=== PATIENT | female | born 1950 ===

== ENCOUNTER 2017-06-11 07:30 | Emergency (ER) | payer MEDICARE, BC ==
[~2017-06-11] VITALS: Ht 152.4 cm; Wt 50.8 kg
[~2017-06-11 07:30] MED LIST: ALPR.5 PO; AMIT25 PO; ASCO500 PO; ASPI81CH PO; BENADRYL25 MG PO; FURO20 PO; Ferosul325 MG PO; GABA300T24; LISI20 PO; MAGOXI400; METCAR500 PO; METO50 PO; METO50ER PO; NITR.4SL SL; PANT40 PO; Prozac20 MG; Senna8.6 MG PO; VICODIN HP 10-1 EACH PO; WARF2 PO
[2017-06-11] MEDS ORDERED: METCAR500 (07:50)
[2017-06-11] MEDS ORDERED: ACET500 (07:50)
[2017-06-11] MEDS ORDERED: DIPH50 PO (07:51)
[2017-06-11] MEDS ORDERED: FLUO10 (07:51)
[2017-06-11] MEDS ORDERED: METO50 PO (07:51)
[2017-06-11] MEDS ORDERED: ONDA4ODT (07:52)
[2017-06-11] MEDS ORDERED: NIFE30ER PO (07:52)
[2017-06-11] MEDS ORDERED: GABA300 PO (07:52)
== END 2017-06-11 08:40 | disposition home or self-care (01) ==
LOC: ER 07:30
DX: I10 Essential (primary) hypertension (principal); M25.512 Pain in left shoulder; G89.29 Other chronic pain; I48.91 Unspecified atrial fibrillation; Z88.8 Allergy status to other drugs, medicaments and biological substances; Z91.011 Allergy to milk products; Z79.899 Other long term (current) drug therapy; Z79.82 Long term (current) use of aspirin; Z79.01 Long term (current) use of anticoagulants; Z95.2 Presence of prosthetic heart valve
CPT/HCPCS: 99282

== ENCOUNTER 2019-09-03 00:22 | Day surgery (SDC) | payer MEDICARE ==
[~2019-09-03 00:22] MED LIST changes: +ACET500; +DIPH50 PO; +FLUO10; +GABA300 PO; +METCAR500; +NIFE30ER PO; +ONDA4ODT
== END 2019-09-03 22:59 | disposition home or self-care (01) ==
LOC: WOUND 00:22
DX: L89.323 Pressure ulcer of left buttock, stage 3 (principal)
CPT/HCPCS: G0463

== ENCOUNTER 2019-09-24 00:23 | Day surgery (SDC) | payer MEDICARE | END 2019-09-24 22:47 | disposition home or self-care (01) | LOC: WOUND 00:23 | DX: L89.323 Pressure ulcer of left buttock, stage 3 (principal); I11.0 Hypertensive heart disease with heart failure; I50.9 Heart failure, unspecified; J43.9 Emphysema, unspecified; Z79.899 Other long term (current) drug therapy; Z79.82 Long term (current) use of aspirin; Z79.01 Long term (current) use of anticoagulants ==

== ENCOUNTER → 2019-09-30 | Outpatient (CLI) | payer MEDICARE ==
[2019-09-30 12:51] LABS: Prealbumin, Blood 13.3 mg/dL (20.0-40.0)
== END | disposition home or self-care (01) ==
LOC: LAB SHORT 12:00 → LAB 12:00
PROVIDERS: Internal Medicine Gastroenterology
DX: L89.323 Pressure ulcer of left buttock, stage 3 (principal)
CPT/HCPCS: 82040; 84134

== ENCOUNTER 2019-10-01 00:13 | Day surgery (SDC) | payer MEDICARE | END 2019-10-01 22:58 | disposition home or self-care (01) | LOC: WOUND 00:13 | DX: L89.323 Pressure ulcer of left buttock, stage 3 (principal); I11.0 Hypertensive heart disease with heart failure; I50.9 Heart failure, unspecified; J43.9 Emphysema, unspecified; Z79.899 Other long term (current) drug therapy; Z79.82 Long term (current) use of aspirin | CPT/HCPCS: 87070; 87075; 87077; 87186; 87205; G0463 ==

== ENCOUNTER 2019-10-08 00:24 | Day surgery (SDC) | payer MEDICARE | END 2019-10-08 23:04 | disposition home or self-care (01) | LOC: WOUND 00:24 | DX: L89.323 Pressure ulcer of left buttock, stage 3 (principal); I25.10 Atherosclerotic heart disease of native coronary artery without angina pectoris; I48.91 Unspecified atrial fibrillation; I11.0 Hypertensive heart disease with heart failure; I50.9 Heart failure, unspecified; J43.9 Emphysema, unspecified | CPT/HCPCS: G0463 ==

== ENCOUNTER 2019-10-22 00:08 | Day surgery (SDC) | payer MEDICARE | END 2019-10-22 23:04 | disposition home or self-care (01) | LOC: WOUND 00:08 | DX: L89.323 Pressure ulcer of left buttock, stage 3 (principal); I11.0 Hypertensive heart disease with heart failure; I50.9 Heart failure, unspecified; J43.9 Emphysema, unspecified; I25.10 Atherosclerotic heart disease of native coronary artery without angina pectoris; Z79.899 Other long term (current) drug therapy; Z79.82 Long term (current) use of aspirin; Z79.01 Long term (current) use of anticoagulants ==

== ENCOUNTER 2019-10-29 14:00 | Day surgery (SDC) | payer MEDICARE | END 2019-10-29 22:49 | disposition home or self-care (01) | LOC: WOUND 14:00 | DX: L89.323 Pressure ulcer of left buttock, stage 3 (principal); I25.10 Atherosclerotic heart disease of native coronary artery without angina pectoris; I48.91 Unspecified atrial fibrillation; I11.0 Hypertensive heart disease with heart failure; I50.9 Heart failure, unspecified | CPT/HCPCS: G0463 ==

== ENCOUNTER 2019-12-17 22:51 | Emergency (ER) | payer MEDICARE, OTHER ==
[~2019-12-17] VITALS: Ht 157.5 cm; Wt 45.4 kg
[2019-12-17 23:23] LABS: BASOPHILS ABSOLUTE AUTO 0.04 K/mm3 (0.00-0.23); BASOPHILS PERCENT AUTO 0 % (0-2); EOSINOPHILS ABSOLUTE AUTO 0.08 K/mm3 (0.00-0.68); EOSINOPHILS PERCENT AUTO 1 % (0-6); Hematocrit 35.2 % (33.0-51.0); IMMATURE GRAN ABSOLUTE AUTO 0.06 K/mm3 (0.00-0.10); IMMATURE GRAN PERCENT AUTO 1 % (0-1); LYMPHOCYTES ABSOLUTE AUTO 1.28 K/mm3 (0.84-5.20); LYMPHOCYTES PERCENT AUTO 11 % (21-46); MONOCYTES PERCENT AUTO 10 % (4-13); Mean Corpuscular HGB 26.1 pg (26.0-34.0); Mean Corpuscular HGB Conc 31.3 g/dL (31.5-36.5); Mean Corpuscular Volume 83 fL (80-100); Mean Platelet Volume 9.1 fL (9.1-12.4); NEUTROPHILS ABSOLUTE AUTO 8.81 K/mm3 (1.96-9.15); NEUTROPHILS PERCENT AUTO 77 % (41-73); Platelet Count 232 K/mm3 (150-400); RDW Coefficient Variation 17.5 % (11.7-14.2); RDW Standard Deviation 53.5 fL (35.1-46.3); Red Blood Cell Count 4.22 M/mm3 (3.80-5.20); White Blood Cell Count 11.37 K/mm3 (4.00-11.30)
[2019-12-17 23:41] LABS: Albumin, Blood 3.3 g/dL (3.4-5.0); Albumin/Globulin Ratio 0.9 (0.8-1.8); Bilirubin, Total 0.6 mg/dL (0.1-1.0); Bun/Creatinine Ratio 21.6 (12.0-20.0); Calcium, Blood 8.3 mg/dL (8.5-10.1); Creatinine, Blood 1.02 mg/dL (0.40-1.00); Globulin, Blood 3.6 g/dL (2.2-4.0); Potassium, Blood 3.6 mmol/L (3.5-5.5); Total Protein, Blood 6.9 g/dL (6.4-8.2)
[2019-12-18 00:40] LABS: Troponin I 0.033 ng/mL (0.000-0.040)
[2019-12-18] MEDS ORDERED: ELIQUIS2.5 MG (02:25)
[2019-12-18 02:36] LABS: Source, Urine Clean Catch
[2019-12-18 02:37] LABS: Appearance, Urine Clear (Clear); Blood, Urine Neg (Neg); Color, Urine Yellow (P-Yellow); Glucose Qualitative, Urine Neg (Neg); Ketones, Urine Neg (Neg); Leukocyte Esterase, Urine Neg (Neg); Nitrite, Urine Neg (Neg); Protein, Urine 2+ (Neg); Urobilinogen, Urine NORM (Normal)
[2019-12-18 02:54] LABS: Bilirubin, Urine 1+ (Neg)
[2019-12-18 02:56] LABS: Bacteria Few /hpf; Red Blood Cells, Urine Not Seen /hpf (0-2); Squamous Epithelial Cells Rare /hpf (Few); White Blood Cells, Urine Not Seen /hpf (0-5)
== END 2019-12-18 03:29 | disposition short-term general hospital (02) ==
LOC: ER 22:51
PROVIDERS: Emergency Medicine; Physician Assistant
DX: I48.91 Unspecified atrial fibrillation (principal); I71.01 Dissection of thoracic aorta; I71.02 Dissection of abdominal aorta; D64.9 Anemia, unspecified; Z88.8 Allergy status to other drugs, medicaments and biological substances; Z79.82 Long term (current) use of aspirin; Z79.899 Other long term (current) drug therapy; I10 Essential (primary) hypertension; J44.9 Chronic obstructive pulmonary disease, unspecified; I25.810 Atherosclerosis of coronary artery bypass graft(s) without angina pectoris; I25.2 Old myocardial infarction; Z20.828 Contact with and (suspected) exposure to other viral communicable diseases
CPT/HCPCS: 36415; 51702; 71275; 74175; 74177; 80053; 81001; 84484; 85025; 86850; 86900; 86901; 93005; 93010; 96361; 96374; 96375; 99284-25; C9132; J2270; J2405; J7030; Q9967; U0002

== ENCOUNTER 2020-01-03 13:35 | Emergency (ER) | payer MEDICARE ==
[~2020-01-03] VITALS: Ht 157.5 cm; Wt 47.6 kg
[~2020-01-03 13:35] MED LIST changes: -AMIT25 PO; -FLUO10; -GABA300 PO; -METCAR500; -VICODIN HP 10-1 EACH PO
[2020-01-03] MEDS ORDERED: METO50 PO (15:19)
[2020-01-03] MEDS ORDERED: MEMA5TAB PO (15:19)
[2020-01-03] MEDS ORDERED: HYDROCODONE-AC1 EAC7 PO (15:21)
[2020-01-03] MEDS ORDERED: Methocarbamol750 MG PO (15:22)
[2020-01-03] MEDS ORDERED: ELIQUIS5 MG PO (15:22)
[2020-01-03] MEDS ORDERED: FURO40 PO (15:23)
[2020-01-03] MEDS ORDERED: GABA300 PO (15:24)
[2020-01-03] MEDS ORDERED: K-Dur20 MEQ PO (15:24)
[2020-01-03] MEDS ORDERED: PANT40 PO (15:25)
[2020-01-03] MEDS ORDERED: AMIT25 PO (15:25)
[2020-01-03] MEDS ORDERED: Prozac40 MG PO (15:26)
[2020-01-03] MEDS ORDERED: FORTEO2.4 ML SC (15:28)
== END 2020-01-03 16:06 | disposition home or self-care (01) ==
LOC: ER 13:35
DX: S51.011A Laceration without foreign body of right elbow, initial encounter (principal); S00.03XA Contusion of scalp, initial encounter; I11.0 Hypertensive heart disease with heart failure; I50.22 Chronic systolic (congestive) heart failure; I48.91 Unspecified atrial fibrillation; Z79.01 Long term (current) use of anticoagulants; Z88.8 Allergy status to other drugs, medicaments and biological substances; Z91.011 Allergy to milk products; Z87.891 Personal history of nicotine dependence; W10.9XXA Fall (on) (from) unspecified stairs and steps, initial encounter
CPT/HCPCS: 70450; 72125; 73080; J2405; J3010

== ENCOUNTER 2020-03-21 13:34 | Emergency (ER) | payer MEDICARE ==
[~2020-03-21] VITALS: Ht 157.5 cm; Wt 45.4 kg
[~2020-03-21 13:34] MED LIST changes: -AMIT25 PO; -DONE5 PO; -ELIQUIS5 MG PO; -GABA300 PO; -HYDROCODONE-AC1 EAC7 PO; -K-Dur20 MEQ PO; -MEMA5TAB PO; -Prozac40 MG PO; -Robaxin750 MG PO; -ZESTRIL40 M1 PO
[2020-03-21] MEDS ORDERED: PANT40 PO (15:36)
[2020-03-21] MEDS ORDERED: Robaxin750 MG PO (15:36)
[2020-03-21] MEDS ORDERED: METO50 PO (15:37)
[2020-03-21] MEDS ORDERED: HYDROCODONE-AC1 EAC7 PO (15:37)
[2020-03-21] MEDS ORDERED: DONE5 PO (15:37)
[2020-03-21] MEDS ORDERED: ZESTRIL40 M1 PO (15:38)
[2020-03-21] MEDS ORDERED: FURO20 PO (15:38)
[2020-03-21] MEDS ORDERED: GABA300 PO (15:38)
[2020-03-21] MEDS ORDERED: AMIT25 PO (15:39)
[2020-03-21] MEDS ORDERED: Prozac40 MG PO (15:39)
[2020-03-21] MEDS ORDERED: MEMA5TAB PO (15:40)
[2020-03-21] MEDS ORDERED: ELIQUIS5 MG PO (15:50)
[2020-03-21] MEDS ORDERED: K-Dur20 MEQ PO (15:50)
== END 2020-03-21 16:29 | disposition home or self-care (01) ==
LOC: ER 13:34
DX: I11.0 Hypertensive heart disease with heart failure (principal); I50.9 Heart failure, unspecified; D64.9 Anemia, unspecified; J44.9 Chronic obstructive pulmonary disease, unspecified; I48.91 Unspecified atrial fibrillation; I25.2 Old myocardial infarction; I25.810 Atherosclerosis of coronary artery bypass graft(s) without angina pectoris; Z95.1 Presence of aortocoronary bypass graft
CPT/HCPCS: 71046; 93005; 93010; 96374; 99283-25; J1940

== ENCOUNTER → 2020-03-21 | Outpatient (CLI) | payer MEDICARE ==
[~2020-03-21] MED LIST changes: +AMIT25 PO; +DONE5 PO; +ELIQUIS5 MG PO; +FORTEO2.4 ML SC; +GABA300 PO; +HYDROCODONE-AC1 EAC7 PO; +K-Dur20 MEQ PO; +MEMA5TAB PO; +Prozac40 MG PO; +Robaxin750 MG PO; +ZESTRIL40 M1 PO
[2020-03-21 12:43] LABS: BASOPHILS ABSOLUTE AUTO 0.05 K/mm3 (0.00-0.23); BASOPHILS PERCENT AUTO 1 % (0-2); EOSINOPHILS ABSOLUTE AUTO 0.07 K/mm3 (0.00-0.68); EOSINOPHILS PERCENT AUTO 1 % (0-6); Hematocrit 27.9 % (33.0-51.0); Hemoglobin 8.8 g/dL (11.5-16.0); IMMATURE GRAN ABSOLUTE AUTO 0.05 K/mm3 (0.00-0.10); IMMATURE GRAN PERCENT AUTO 1 % (0-1); LYMPHOCYTES ABSOLUTE AUTO 0.92 K/mm3 (0.84-5.20); LYMPHOCYTES PERCENT AUTO 10 % (21-46); MONOCYTES ABSOLUTE AUTO 0.94 K/mm3 (0.16-1.47); MONOCYTES PERCENT AUTO 10 % (4-13); Mean Corpuscular HGB 24.7 pg (26.0-34.0); Mean Corpuscular HGB Conc 31.5 g/dL (31.5-36.5); Mean Corpuscular Volume 78 fL (80-100); Mean Platelet Volume 9.5 fL (9.1-12.4); NEUTROPHILS ABSOLUTE AUTO 7.42 K/mm3 (1.96-9.15); NEUTROPHILS PERCENT AUTO 79 % (41-73); Platelet Count 226 K/mm3 (150-400); RDW Coefficient Variation 16.5 % (11.7-14.2); RDW Standard Deviation 46.6 fL (35.1-46.3); Red Blood Cell Count 3.56 M/mm3 (3.80-5.20); White Blood Cell Count 9.45 K/mm3 (4.00-11.30)
[2020-03-21 13:11] LABS: Bun/Creatinine Ratio 24.3 (12.0-20.0); Calcium, Blood 8.5 mg/dL (8.5-10.1); Creatinine, Blood 1.07 mg/dL (0.40-1.00); Potassium, Blood 4.6 mmol/L (3.5-5.5); Troponin I 0.045 ng/mL (0.000-0.040)
== END ==
LOC: LAB EV 12:39 → LAB SHORT 12:39
PROVIDERS: Physician Assistant Surgical
DX: R06.09 Other forms of dyspnea (principal)
CPT/HCPCS: 80048; 83880; 84484; 85025; 85379